=== PATIENT | male | born 1995 | race Caucasian/White ===

== ENCOUNTER 2021-10-06 05:20 | Emergency (ER) | payer SELFPAY ==
[2021-10-06] MEDS ORDERED: CYCLOBENZAPRINE10 M1 PO (06:12)
[2021-10-06 07:10] VITALS: BP 136/73
== END 2021-10-06 07:10 | disposition home or self-care (01) ==
LOC: ED 05:20
DX: M62.830 Muscle spasm of back (principal); F17.210 Nicotine dependence, cigarettes, uncomplicated; Z28.310 Unvaccinated for COVID-19; X50.0XXA Overexertion from strenuous movement or load, initial encounter
CPT/HCPCS: J1885; J2360